=== PATIENT | female | born 1950 | race Caucasian/White ===

== ENCOUNTER → 2017-01-13 | Outpatient (CLI) | payer BC ==
[~2017-01-13] MED LIST: ASCA500 PO; GADAVIST IV PRN; HYDC25 PO; MEDLIST; MULT-506 PO
--- NOTE | 2017-01-14 09:20 | DIAGNOSTIC IMAGING REPORT ---
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 COMPARISON STUDY: No previous studies for comparison. TECHNIQUE: Utilizing a 0.7 Brittany open magnet, multiplanar, multi echo imaging of the brain was performed pre and postcontrast administration with thin cut imaging through the internal auditory canals. Injection of 7 cc of Gadavist IV was uneventful. FINDINGS: There are no areas of restricted diffusion. No acute intracranial hemorrhage, midline shift or mass effect is present. Ventricular system is normal. Basilar cisterns are patent. Flow-voids for the major intracranial vessels are present. There are no intracranial masses or areas of pathologic enhancement. An area of encephalomalacia or gliosis adjacent to the temporal horn of the right lateral ventricle is of doubtful significance. No abnormalities are identified within the internal auditory canals. Calvarial signal is maintained. There is no fluid within mastoid air cells. Orbits are unremarkable. IMPRESSION: 1. No acute intracranial findings. 2. No abnormalities within the internal auditory canals. 3. No intracranial mass or pathologic enhancement. Electronically signed by: Jama Bean M.D. 01/14/2017 9:18 AM Dictated Date/Time: 01/13/2017 4:22 PM
== END | disposition home or self-care (01) ==
LOC: C.OPENMRI 14:12
DX: H90.5 Unspecified sensorineural hearing loss (principal)

== ENCOUNTER → 2017-07-21 | Outpatient (CLI) | payer BC ==
[~2017-07-21] MED LIST changes: -GADAVIST IV PRN
--- NOTE | 2017-07-22 07:35 | MAMMOGRAPHY REPORT ---
BILATERAL DIGITAL SCREENING MAMMOGRAM TOMOSYNTHESIS WITH CAD: 07/21/2017 CLINICAL HISTORY: Routine screening. Patient has no complaints. TECHNIQUE: Breast tomosynthesis in addition to standard 2D mammography was performed. Current study was also evaluated with a Computer Aided Detection (CAD) system. COMPARISON: Comparison is made to exams dated: 07/17/2016 mammogram, 07/13/2015 mammogram, 06/21/2014 mammogram, 05/20/2013 mammogram, 05/04/2012 mammogram, and 05/02/2011 mammogram - [facility]. BREAST COMPOSITION: The tissue of both breasts is almost entirely fatty. FINDINGS: There are scattered benign round calcifications bilaterally. No suspicious mass, sql data architect ural distortion or cluster of microcalcifications is seen. IMPRESSION: ACR BI-RADS CATEGORY 1: NEGATIVE There is no mammographic evidence of malignancy. A 1 year screening mammogram is recommended. The pa tient will receive written notification of the results. Approximately 10% of breast cancers are not detected with mammography. A negative mammographic report should not delay biopsy if a clinically suggestive mass is present. Rachna Ladd M.D. ay/:07/21/2017 16:47:43 [employer]ement Contractor: Nat Mccullough, [facility] letter sent: Normal 1/2 BI-RADS Code: ACR BI-RADS Category 1: Negative
== END | disposition home or self-care (01) ==
LOC: C.MAMM 12:55
PROVIDERS: ATTEND Family Medicine
DX: Z12.31 Encounter for screening mammogram for malignant neoplasm of breast (principal)

== ENCOUNTER → 2017-08-25 | Outpatient (CLI) | payer BC | END | disposition home or self-care (01) | LOC: C.MAMM 13:35 | PROVIDERS: ATTEND Family Medicine | DX: M81.0 Age-related osteoporosis without current pathological fracture (principal) ==